=== PATIENT | female | born 1940 | race Caucasian/White ===

== ENCOUNTER → 2016-07-13 | Outpatient (CLI) | payer MEDICARE, OTHER ==
[~2016-07-13] MED LIST: ASPIRIN81 M2 PO; BUMEX PO; CARVEDILOL6.25 MG PO/SL; CELEBREX PO; CENTRUM PO; DESYREL50 MG PO; FISH OIL300 MG PO; KLONOPIN0.5 MG PO; LASIX20 MG; LISINOPRIL-HCTZ1 T18; NITROGLYCERIN0.3 MG SL; POTASSIUM CHLO10 ME1; PREDNISONE PO; PROZAC10 M1 PO; ROBAXIN 750750 M1 PO; SYSTANE 0.3-0.415 ML OU; TOVIAZ4 MG; VITAMIN D2400 UNIT PO; XANAX0.5 M1 PO; ZANTAC150 M1 PO; ZOCOR20 MG PO
--- NOTE | ~2016-07-13 | CT57 ---
[facility] A Service of [facility] RADIOLOGY TEXT RESULTS PATIENT: CORNELIUS RODRIGUEZ [facility] UNIT #: [id number] AGE: [address]: Maria Del Carmen Gutierrez MD SEX: F ORDER DR: [id number] [place] [id number] [facility]. [place], [place] [address] [id number] O MR#: [id number] Acc #: [id number] NAME: CORNELIUS RODRIGUEZ : 1940 SEX: F STUDY DATE/TIME: 07/13/2016 11:45 UNIT: CCA ROOM: STUDY DESCRIPTION: CT Chest Wo Cont Attending Physician: Maria Del Carmen Gutierrez M.D. Referring Physician: Maria Del Carmen Gutierrez M.D. Ordering Physician: Maria Del Carmen Gutierrez M.D. Primary Care Physician: Gentry Sanchez M.D. MEDICAL IMAGING REPORT This report is preliminary unless electronic signature is present EXAM CT of the chest without contrast. DATE OF EXAM 07/13/2016 INDICATIONS 76-year-old female with restrictive lung disease, shortness of breath for [address] of the chest was performed without contrast. Coronal and sagittal reformatted images were obtained. NOTE: This CT exam was performed with one or more of the following radiation dose reduction techniques: automatic exposure control, adjustment of mA and/or kV according to patient size, and iterative reconstruction. COMPARISON No comparisons are available. FINDINGS There is minimal atelectasis or scar in the medial right lower lobe. No airspace consolidation or suspicious pulmonary nodule. No diffuse interstitial process. No lymphadenopathy or pleural effusion. Limited imaging of the upper abdomen demonstrates a small fat-containing hernia anteriorly. Degenerative changes of the thoracic spine. IMPRESSION There is minimal atelectasis or scarring in the medial right lower lobe. The exam is otherwise unremarkable. Dictated by... [facility] A Service of [facility] RADIOLOGY TEXT RESULTS PATIENT: CORNELIUS RODRIGUEZ LOCATION: [facility] : 40 UNIT #: [id number] AGE: [address]: Maria Del Carmen Gutierrez MD SEX: F ORDER DR: Baltazar Palomo M.D. THIS IS AN ELECTRONICALLY VERIFIED REPORT Baltazar Palomo M.D. at 07/14/2016 3:36 PM PAULETTE/keith TD: 07/13/2016 21:37 JOB #: [id number] MEDICAL IMAGING REPORT COPY
== END | disposition home or self-care (01) ==
LOC: CCAT 10:42
DX: J98.4 Other disorders of lung (principal); R91.8 Other nonspecific abnormal finding of lung field
CPT/HCPCS: 71250

== ENCOUNTER → 2016-09-13 | Outpatient (CLI) | payer MEDICARE, OTHER ==
[2016-09-13 14:56] LABS: URINE APPEARANCE CLEAR; URINE BILIRUBIN NEG (NEG); URINE BLOOD NEG (NEG); URINE COLOR YELLOW; URINE GLUCOSE NEG (NORM); URINE KETONE NEG (NEG); URINE LEUKOCYTE ESTERASE 1+ (NEG); URINE NITRATE NEG (NEG); URINE PH 5.5 (5-8); URINE PROTEIN NEG (NEG); URINE UROBILINOGEN 0.2 MG/DL (NORM)
[2016-09-13 14:58] LABS: MICRO INDICATED? YES
[2016-09-13 15:04] LABS: BASOPHIL# 0.1 X10e3 (0-0.3); BASOPHIL% 1.3 % (0-2.5); EOSINOPHIL# 0.3 X10e3 (0-0.7); EOSINOPHIL% 3.2 % (0.0-7.0); HEMATOCRIT 43.2 % (35.0-45.0); HEMOGLOBIN 14.5 gm/dL (12.0-16.0); LYMPHOCYTE# 1.7 X10e3 (1.0-3.5); LYMPHOCYTE% 19.1 % (17.0-45.0); MEAN CELL VOLUME 92.4 FL (83-96); MEAN CORPUSCULAR HEMOGLOBIN 31.1 PG (28-34); MEAN CORPUSCULAR HGB CONC 33.6 g/dL (30-36); MONOCYTE# 0.6 X10e3 (0-1.0); MONOCYTE% 6.8 % (3.0-12.0); NEUTROPHIL% 69.6 % (40-75); PLATELET COUNT 271 X10e3 (140-420); RED BLOOD COUNT 4.68 X10e (3.90-5.30); WHITE BLOOD COUNT 8.7 X10e3 (4.0-10.5)
[2016-09-13 15:05] LABS: DIFF IND NO
[2016-09-13 15:07] LABS: URINE BACTERIA 1+ (NEG); URINE SQUAMOUS EPITHELIAL CELL OCCAS /[HPF]; URINE WBC 25-50 /[HPF] (0-5)
[2016-09-13 15:08] LABS: URINE GRANULAR CAST 0-2 /[HPF]; URINE HYALINE CAST 0-2 /[HPF]; URINE MUCUS PRESENT; URINE TRANSITIONAL EPI CELLS OCCAS /[HPF]
[2016-09-13 15:09] LABS: BUN/CREATININE RATIO 15.55; CALCIUM SERUM 8.7 mg/dL (8.4-10.2); CREATININE SERUM 1.8 mg/dL (0.6-1.4); GLOM FILT RATE Estimated 26.9 mL/min (>60); POTASSIUM 4.1 mmol/L (3.5-5.1)
[2016-09-13 16:13] LABS: CREATININE,RANDOM URINE 190 mg/dL; TOTAL PROTEIN,RANDOM URINE 13 mg/dl (<10)
== END | disposition home or self-care (01) ==
LOC: SLAB 13:57
PROVIDERS: Internal Medicine Nephrology
DX: N18.3 Chronic kidney disease, stage 3 (moderate) (principal); D63.1 Anemia in chronic kidney disease
CPT/HCPCS: 36415; 80048; 81003; 82306; 82310; 82570; 82728; 83540; 83550; 83970; 84100; 84156; 85025

== ENCOUNTER 2016-09-19 12:22 | Emergency (ER) | payer MEDICARE, OTHER ==
--- NOTE | ~2016-09-19 | EKG ---
PATIENT: CORNELIUS RODRIGUEZ UNIT #: [id number] Ventricular Rate: 65 BPM Atrial Rate: 65 BPM P-R Interval: 160 ms QRS Duration: 104 ms Q-T Interval: 412 ms QTC Calculation(Bezet): 428 ms P [place]: 35 degrees Calculated R [place]: 44 degrees Calculated T [place]: 80 degrees Diagnosis Line: Normal sinus rhythm Diagnosis Line: Septal infarct , age undetermined Diagnosis Line: Abnormal ECG Diagnosis Line: No previous ECGs available Diagnosis Line: Confirmed by MAGNOLIA JARQUIN MD ([id number]) on Diagnosis Line: 09/21/2016 1:26:42 PM INTERPRETING MD: MILKA GILBERT
--- NOTE | ~2016-09-19 | CR72 ---
[facility]. [facility] A Service of [facility] & [facility] RADIOLOGY TEXT RESULTS PATIENT: CORNELIUS RODRIGUEZ LOCATION: SED : 40 UNIT #: [id number] AGE: [address]: Linwood Munoz DO SEX: F ORDER DR: [id number] [place] [id number] E MR#: [id number] Acc #: [id number] NAME: CORNELIUS RODRIGUEZ : 1940 SEX: F STUDY DATE/TIME: 09/19/2016 13:03 UNIT: SED ROOM: STUDY DESCRIPTION: CR Chest Single View Portable Attending Physician: Linwood Munoz Ordering Physician: Linwood Munoz Primary Care Physician: Gentry Sanchez M.D. MEDICAL IMAGING REPORT This report is preliminary unless electronic signature is present. EXAM Portable chest INDICATION Shortness of breath today. Comparison with 01/28/2015 FINDINGS There is no definite acute infiltrate. Heart size stable. Visualized osseous structures are unremarkable. IMPRESSION No active disease. Dictated by... Baltazar Palomo M.D. THIS IS AN ELECTRONICALLY VERIFIED REPORT Baltazar Palomo M.D. at 09/20/2016 2:21 PM PAULETTE/sharita TD: 09/20/2016 02:43 JOB #: [id number] MEDICAL IMAGING REPORT Page 1 of 1
[~2016-09-19 12:22] MED LIST changes: -BUMEX PO; -KLONOPIN0.5 MG PO; -PROZAC10 M1 PO; -SYSTANE 0.3-0.415 ML OU; -VITAMIN D2400 UNIT PO
[2016-09-19] MEDS ORDERED: SYSTANE 0.3-0.415 ML OU (14:04)
[2016-09-19] MEDS ORDERED: VITAMIN D2400 UNIT PO (14:04)
[2016-09-19] MEDS ORDERED: KLONOPIN0.5 MG PO (14:04)
[2016-09-19] MEDS ORDERED: BUMEX PO (14:04)
[2016-09-19 15:17] LABS: BASOPHIL# 0.1 X10e3 (0-0.3); BASOPHIL% 1.2 % (0-2.5); EOSINOPHIL# 0.5 X10e3 (0-0.7); EOSINOPHIL% 5.2 % (0.0-7.0); HEMATOCRIT 38.5 % (35.0-45.0); HEMOGLOBIN 12.9 gm/dL (12.0-16.0); LYMPHOCYTE% 22.4 % (17.0-45.0); MEAN CELL VOLUME 93.3 FL (83-96); MEAN CORPUSCULAR HEMOGLOBIN 31.2 PG (28-34); MEAN CORPUSCULAR HGB CONC 33.4 g/dL (30-36); MEAN PLATELET VOLUME 8.8 FL (6.5-11.5); MONOCYTE# 0.7 X10e3 (0-1.0); MONOCYTE% 8.1 % (3.0-12.0); NEUTROPHIL# 5.5 X10e3 (1.5-7.1); NEUTROPHIL% 63.1 % (40-75); PLATELET COUNT 109 X10e3 (140-420); RED BLOOD COUNT 4.12 X10e (3.90-5.30); RED CELL DISTRIBUTION WIDTH 13.1 % (11.0-15.5); WHITE BLOOD COUNT 8.8 X10e3 (4.0-10.5)
[2016-09-19 15:20] LABS: DIFF IND NO
[2016-09-19 15:47] LABS: ALBUMIN SERUM 3.8 g/dL (3.5-5.0); BILIRUBIN, DIRECT 0.3 mg/dL (0.0-0.2); BILIRUBIN,INDIRECT 0.6 mg/dL (0.0-0.9); BILIRUBIN,TOTAL 0.9 mg/dL (0.2-2.0); BUN/CREATININE RATIO 18.12; CALCIUM SERUM 9.1 mg/dL (8.4-10.2); CREATININE SERUM 1.6 mg/dL (0.6-1.4); POTASSIUM 4.6 mmol/L (3.5-5.1); PROTEIN TOTAL SERUM 7.6 g/dL (6.0-8.3)
== END 2016-09-19 17:07 | disposition home or self-care (01) ==
LOC: SED 12:22
PROVIDERS: Emergency Medicine
DX: J98.01 Acute bronchospasm (principal); I11.0 Hypertensive heart disease with heart failure; I50.9 Heart failure, unspecified; F41.9 Anxiety disorder, unspecified; Z90.710 Acquired absence of both cervix and uterus; Z98.890 Other specified postprocedural states
CPT/HCPCS: 36415; 71010; 80048; 80076; 83880; 85025; 93005; 94640; 96372; 99284; J1940; J2930

== ENCOUNTER 2016-10-02 11:05 | Emergency (ER) | payer MEDICARE, OTHER ==
--- NOTE | ~2016-10-02 | EKG ---
PATIENT: CORNELIUS RODRIGUEZ UNIT #: [id number] Ventricular Rate: 86 BPM Atrial Rate: 86 BPM P-R Interval: 168 ms QRS Duration: 102 ms Q-T Interval: 356 ms QTC Calculation(Bezet): 426 ms P Rogers: 69 degrees Calculated R Rogers: 53 degrees Calculated T Rogers: 79 degrees Diagnosis Line: Normal sinus rhythm Diagnosis Line: RSR' or QR pattern in V1 suggests right Diagnosis Line: ventricular conduction delay Diagnosis Line: Borderline ECG Diagnosis Line: When compared with ECG of 19-SEP-2016 13:06, Diagnosis Line: No significant change was found Diagnosis Line: Confirmed by MAGNOLIA JARQUIN MD ([id number]) on Diagnosis Line: 10/05/2016 3:22:43 PM INTERPRETING MD: MILKA GILBERT
--- NOTE | ~2016-10-02 | CR72 ---
[facility]. [facility] A Service of [facility] RADIOLOGY TEXT RESULTS PATIENT: CORNELIUS RODRIGUEZ LOCATION: SED : 40 UNIT #: [id number] AGE: [address]: Keenan Carrasco MD SEX: F ORDER DR: [id number] [place] [id number] E MR#: [id number] Acc #: [id number] NAME: CORNELIUS RODRIGUEZ : 1940 SEX: F STUDY DATE/TIME: 10/02/2016 11:27 UNIT: SED ROOM: STUDY DESCRIPTION: CR Chest Single View Portable Attending Physician: Keenan Carrasco M.D. Ordering Physician: Keenan Carrasco M.D. Primary Care Physician: Gentry Sanchez M.D. MEDICAL IMAGING REPORT This report is preliminary unless electronic signature is present. EXAM Portable chest HISTORY Shortness of breath since 4 a.m. today. COMPARISON 09/19/2016 FINDINGS Low volume inspiration. No definite acute infiltrate. Heart size stable. The visualized osseous structures are unremarkable. IMPRESSION No active disease. Dictated by... Baltazar Palomo M.D. THIS IS AN ELECTRONICALLY VERIFIED REPORT Baltazar Palomo M.D. at 10/04/2016 12:37 PM Ronald TD: 10/02/2016 13:39 JOB #: [id number] MEDICAL IMAGING REPORT Page 1 of 1
[~2016-10-02 11:05] MED LIST changes: +BUMEX PO; +KLONOPIN0.5 MG PO; +SYSTANE 0.3-0.415 ML OU; +VITAMIN D2400 UNIT PO
[2016-10-02 11:51] LABS: BASOPHIL# 0.1 X10e3 (0-0.3); BASOPHIL% 1.1 % (0-2.5); EOSINOPHIL# 0.7 X10e3 (0-0.7); EOSINOPHIL% 5.1 % (0.0-7.0); HEMATOCRIT 41.1 % (35.0-45.0); HEMOGLOBIN 13.8 gm/dL (12.0-16.0); LYMPHOCYTE# 1.8 X10e3 (1.0-3.5); LYMPHOCYTE% 13.1 % (17.0-45.0); MEAN CELL VOLUME 93.2 FL (83-96); MEAN CORPUSCULAR HEMOGLOBIN 31.3 PG (28-34); MEAN CORPUSCULAR HGB CONC 33.6 g/dL (30-36); MEAN PLATELET VOLUME 7.5 FL (6.5-11.5); MONOCYTE# 1.1 X10e3 (0-1.0); MONOCYTE% 8.4 % (3.0-12.0); NEUTROPHIL# 9.8 X10e3 (1.5-7.1); NEUTROPHIL% 72.3 % (40-75); PLATELET COUNT 267 X10e3 (140-420); RED BLOOD COUNT 4.41 X10e (3.90-5.30); RED CELL DISTRIBUTION WIDTH 13.2 % (11.0-15.5); WHITE BLOOD COUNT 13.6 X10e3 (4.0-10.5)
[2016-10-02 11:53] LABS: DIFF IND NO
[2016-10-02 12:02] LABS: POC - CKMB <1.0 ng/mL (0.0-7.9); POC - TROPONIN <0.05 ng/mL (<=0.05)
[2016-10-02 12:07] LABS: ALBUMIN SERUM 3.7 g/dL (3.5-5.0); BILIRUBIN, DIRECT 0.1 mg/dL (0.0-0.2); BILIRUBIN,INDIRECT 0.3 mg/dL (0.0-0.9); BILIRUBIN,TOTAL 0.4 mg/dL (0.2-2.0); CALCIUM SERUM 9.1 mg/dL (8.4-10.2); GLOM FILT RATE Estimated 23.7 mL/min (>60); POTASSIUM 4.4 mmol/L (3.5-5.1); PROTEIN TOTAL SERUM 7.3 g/dL (6.0-8.3)
[2016-10-02 13:11] LABS: POC - CKMB <1.0 ng/mL (0.0-7.9); POC - TROPONIN <0.05 ng/mL (<=0.05)
== END 2016-10-02 13:47 | disposition home or self-care (01) ==
LOC: SED 11:05
PROVIDERS: Emergency Medicine
DX: J44.9 Chronic obstructive pulmonary disease, unspecified (principal); N28.9 Disorder of kidney and ureter, unspecified; I50.9 Heart failure, unspecified; Z90.710 Acquired absence of both cervix and uterus; Z98.890 Other specified postprocedural states
CPT/HCPCS: 36415; 71010; 80048; 80076; 82553; 83880; 84484; 85025; 93005; 94640; 99284

== ENCOUNTER 2016-11-24 20:42 | Inpatient (IN) | payer MEDICARE, OTHER ==
[~2016-11-24] VITALS: Ht 147.3 cm; Wt 126.6 kg
--- NOTE | ~2016-11-24 | HP ---
Unit #: [id number] #: [id number] Patient: CORNELIUS RODRIGUEZ [id number] [place] [id number] [facility] [place] [facility]. [place], [place] [address] [id number] I MR#: [id number] NAME: CORNELIUS RODRIGUEZ ROOM: 313 Age: 76 Sex: F Admission Date: 11/25/2016 : 1940 Attending Physician: Deanna Muniz M.D. Primary Care Physician: Gentry Sanchez M.D. HISTORY AND PHYSICAL ADMISSION DIAGNOSES 1. Acute exacerbation of chronic obstructive pulmonary disease. 2. Acute kidney injury. 3. Morbid obesity. 4. Hypertension. 5. Dyslipidemia. 6. Depression and anxiety. HISTORY OF PRESENT ILLNESS Cornelius Rodriguez is a 76-year-old female patient of Dr. Sanchez who went to an [facility] ER yesterday secondary to shortness of air, dyspnea, which started last Tuesday, along with the nonproductive cough. The patient denies any fever or chills. Denies any chest pain. Denies any headache, dizziness, nausea, vomiting, diarrhea, or abdominal pain. Tells me that she has never been diagnosed with COPD. She is a nonsmoker; however, her used to be a heavy smoker and he used to smoke around her. REVIEW OF SYSTEMS Twelve point review of systems on this patient is basically negative, except as above. PAST MEDICAL HISTORY History of hypertension, dyslipidemia, depression and anxiety. HOME MEDICATIONS Celebrex, aspirin, Zocor, zantac, Desyrel, multivitamins, fish oil, carvedilol, Klonopin, vitamin D2, Systane eye drops, Bumex, and Prozac. ALLERGIES No known drug allergies. SOCIAL HISTORY No history of tobacco, alcohol or illicit drugs. FAMILY HISTORY Unremarkable. PHYSICAL EXAMINATION GENERAL APPEARANCE: Patient is an obese 76-year-old, female in no acute distress. VITAL SIGNS: BP 166/80, heart rate 72, respirations 16, temperature 97.7. HEENT: Head is atraumatic. Pupils equal, round, and reactive to light. Extraocular muscles intact. Oropharynx clear. Unit #: [id number] #: [id number] Patient: CORNELIUS RODRIGUEZ NECK: Supple. No mass. No JVD. No bruits. CHEST: Diminished bilaterally with very mild expiratory wheezing. CARDIOVASCULAR: S1 and S2. No murmurs. ABDOMEN: Soft, obese, nontender, and nondistended. LOWER EXTREMITIES: With the bilateral edema. NEUROLOGIC: Patient grossly intact. No focal deficits. DIAGNOSTIC STUDIES IMAGING STUDIES: Chest x-ray negative. LABORATORY STUDIES: Chemistry is significant for BUN and creatinine of 28 and 1.7. Coagulation panel unremarkable. Cardiac enzymes negative. White count 9.5, H and H 13.2 and 38.3. ASSESSMENT AND PLAN 1. Acute exacerbation of COPD, continue DuoNeb, continue (1) , pulmonary eval. 2. Acute kidney injury, will hold Bumex, gentle hydration. 3. Consult nephrology. 4. Morbid obesity. 5. Hypertension. 6. Will start on amlodipine. 7. Dyslipidemia, continue home meds. 8. Depression and anxiety, continue home meds. 9. GI and DVT prophylaxis, continue Protonix and Lovenox. 10. Lower extremity edema. Will check the Doppler and rule out DVT. Dictated by Laure Ying/tra TD: 11/26/2016 10:33 JOB #: [id number] HISTORY AND PHYSICAL Page 1 of 1 X Cooper Valentin MD HISTORY AND PHYSICAL
--- NOTE | ~2016-11-24 | EKG ---
PATIENT: CORNELIUS RODRIGUEZ UNIT #: [id number] Ventricular Rate: 72 BPM Atrial Rate: 72 BPM P-R Interval: 170 ms QRS Duration: 102 ms Q-T Interval: 392 ms QTC Calculation(Bezet): 429 ms P [place]: 76 degrees Calculated R [place]: 49 degrees Calculated T [place]: 78 degrees Diagnosis Line: Normal sinus rhythm Diagnosis Line: Normal ECG Diagnosis Line: When compared with ECG of 02-OCT-2016 11:10, Diagnosis Line: No significant change was found Diagnosis Line: Confirmed by MAGNOLIA JARQUIN MD ([id number]) on Diagnosis Line: 11/25/2016 12:56:57 PM INTERPRETING MD: MILKA GILBERT
--- NOTE | ~2016-11-24 | CR72 ---
[facility]. [facility] A Service of [facility] & [facility] RADIOLOGY TEXT RESULTS PATIENT: CORNELIUS RODRIGUEZ LOCATION: C3A 313-01 : 40 UNIT #: [id number] AGE: [address]: Deanna Muniz MD SEX: F ORDER DR: [id number] [place] [id number] I MR#: [id number] Acc #: [id number] NAME: CORNELIUS RODRIGUEZ : 1940 SEX: F STUDY DATE/TIME: 11/24/2016 20:59 UNIT: SEDOF ROOM: [facility] STUDY DESCRIPTION: CR Chest Single View Portable Attending Physician: Deanna Muniz M.D. Ordering Physician: Jono Robertson M.D. Primary Care Physician: Gentry Sanchez M.D. MEDICAL IMAGING REPORT This report is preliminary unless electronic signature is present. EXAM Portable chest 11/24/2016 HISTORY 76-year-old female with shortness of air and cough for 2 days. COMPARISON Chest 10/02/2016. FINDINGS Frontal chest demonstrates clear lungs. No pleural effusion or pneumothorax. Heart size and mediastinum are normal. Pulmonary vasculature normal. IMPRESSION No acute cardiopulmonary findings. Dictated by... Jayy Lomeli M.D. THIS IS AN ELECTRONICALLY VERIFIED REPORT Jayy Lomeli M.D. at 11/25/2016 4:03 PM CITLALI/hollis TD: 11/25/2016 06:37 JOB #: [id number] MEDICAL IMAGING REPORT Page 1 of 1
--- NOTE | ~2016-11-24 | CO ---
Unit #: [id number] #: [id number] Patient: CORNELIUS RODRIGUEZ [id number] [address] [address] [id number] I MR#: [id number] NAME: CORNELIUS RODRIGUEZ ROOM: 313 Age: 76 Sex: F Admission Date: 11/25/2016 : 1940 Attending Physician: Deanna Muniz M.D. Primary Care Physician: Gentry Sanchez M.D. Consultation Date: 11/27/2016 CONSULTATION REPORT TYPE OF CONSULTATION Nephrology REASON FOR CONSULTATION Elevated creatinine level. 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 Now, came in with shortness of breath and nonproductive cough. We have been asked to see for elevated creatinine level. The patient has been on Celebrex for several years on a regular daily basis. Does not admit to vomiting, diarrhea, or nausea. The creatinine level is noted to be 1.6. No hematuria. No dysuria. REVIEW OF SYSTEMS CVS: As above. RESPIRATORY: As above. GI: No diarrhea. No vomiting. : No hematuria. PAST MEDICAL HISTORY Significant for hypertension, hyperlipidemia, depression, and chronic kidney disease stage 3. MEDICATIONS Home medications include Celebrex, aspirin, Zocor, Zantac, and carvedilol. ALLERGIES No known drug allergies. SOCIAL HISTORY Does not drink or smoke. FAMILY HISTORY Unremarkable for end-stage renal disease. PHYSICAL EXAMINATION GENERAL: The patient is awake, alert, and oriented. VITAL SIGNS: Temperature is 97.9, heart rate is 83 per minute, blood pressure is 150/70, and saturations 94%. HEENT: Head is atraumatic. Extraocular movements are intact. Sclerae are anicteric. Unit #: [id number] #: [id number] Patient: CORNELIUS RODRIGUEZ NECK: Supple. There is no elevation of JVD. CHEST: Clear. Air entry is equal bilaterally. Breathing is vesicular in nature. HEART: S1 and S2 audible. There is no S3. No S4. ABDOMEN: Soft. There is no organomegaly. No guarding. No rigidity. No rebound tenderness. EXTREMITIES: There is trace to 1+ edema. ONCOLOGY REP SPECIALIST: Motor system is intact. Cerebellar system is intact. LABORATORY DATA Sodium is 139, potassium is 4.4, chloride is 107, CO2 is 22, BUN is 34, creatinine is 1.6, glucose 124, and calcium is 8.4. WBC is 18.6, hemoglobin is 12.6, hematocrit is 38.5, and platelets 234. Urinalysis and urinary protein have been ordered, but are not available. BNP is 48. IMPRESSION 1. 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 Renal function is close to baseline. The volume is satisfactory. We will discontinue the IV fluids. 2. Hypertension. The patient has been started on lisinopril and hydrochlorothiazide. We will continue with that. 3. History of chronic obstructive pulmonary disease. Assess left ventricular function. Request ejection fraction and cardiology records from . Dictated by... Malcom Perrin M.D. RA/vignesh TD: 11/28/2016 04:18 JOB #: [id number] CONSULTATION REPORT Page 1 of 1 X Malcom Perrin MD X CONSULTATION REPORT
--- NOTE | ~2016-11-24 | DS ---
Unit #: [id number] #: [id number] Patient: CORNELIUS RODRIGUEZ [id number] [address] [address] [id number] I MR#: [id number] NAME: CORNELIUS RODRIGUEZ ROOM: 313 Age: 76 Sex: F Admission Date: 11/25/2016 : 1940 Discharge Date: 12/01/2016 Attending Physician: Deanna Muniz M.D. Primary Care Physician: Gentry Sanchez M.D. DISCHARGE SUMMARY FINAL DIAGNOSES 1. Acute hypoxic respiratory failure, which is resolved. Patient's pulse ox on room air is 99%. 2. Acute bronchitis. 3. Acute on chronic kidney disease. 4. Hypertension. 5. Possible obstructive sleep apnea. 6. Morbid obesity. 7. Chronic obstructive pulmonary disease. 8. Hypokalemia, which is resolved. 9. Hypertension. 10. Hyperlipidemia. 11. Depression/anxiety. 12. Deconditioning. ADMITTING PHYSICIAN Dr. Valentin. DISCHARGING PHYSICIAN Dr. Deanna Remy [facility] Dr. Perrin and Dr. Gutierrez from pulmonary services; Dr. Malcom Perrin from renal services. LAB WORKUP ON DISCHARGE Please note, these labs were done on 11/30/2016, BNP shows sodium 138, potassium 3.5, chloride 103, BUN 44, creatinine 1.7, calcium 8.6. CBC show WBC 12.4, hemoglobin 12.8, hematocrit 37.8 and platelet count of 236. Strep pneumoniae antigen in the urine was negative. Urinalysis on 11/28/2016 showed 1+ leukocyte esterase, otherwise negative. BNP on admission was 48. Troponin on admission was less than 0.05. Significant radiological studies done during hospitalization was ultrasound of kidneys bilateral, which shows generalized renal and cortical atrophy, most likely reflecting chronic renal disease, no acute abnormalities. Progressive decrease in size of the right kidney. Venous Doppler study of the lower extremity was done, which shows no SVT or DVT in the lower extremities. Chest x-ray on 11/24/2016 showed no acute cardiopulmonary changes. Patient did have CT scan of the chest done before coming here on 07/13/2016, which showed minimal atelectasis or scarring in the medial right lower Unit #: [id number] #: [id number] Patient: CORNELIUS RODRIGUEZ. The exam is unremarkable. DISCHARGE MEDICATIONS 1. Mini-Neb treatment with albuterol and a ProTime twice a day and q.4 p.r.n. 2. Prednisone 40 mg q. day for three days and decrease 10 mg every three days until off. 3. Tylenol 650 q.4 p.r.n. 4. Prozac 10 mg daily. 5. Desyrel 100 mg q.h.s 6. Fish oil capsule daily. 7. Klonopin 0.5 mg 3 times a day. 8. Coreg 6.25 mg twice a day. 9. Amlodipine 10 mg daily. 10. Chlorthalidone 25 mg daily. 11. Please note, Bumex had been discontinued at this time. 12. Systane eye drops 2 drops OU daily. 13. Lipitor 10 mg q.h.s.; 14. Zestril 20 mg twice a day. 15. Pepcid 20 mg daily. 16. Multivitamin daily. 17. Aspirin 81 mg daily. 18. Augmentin 875 mg p.o. twice a day until 12/03/2016. 19. Vitamin D 50,000 units q. weekly. HOSPITAL COURSE Ms. Cornelius Rodriguez is a 76-year-old female who was admitted by my colleague, Dr. Valentin with shortness of breath and acute exacerbation of COPD. The patient had gone to [facility] prior to coming to [facility]. She was admitted with nonproductive cough and chest congestion. Patient's admission diagnosis was acute bronchitis, acute exacerbation of COPD, acute respiratory failure, acute kidney injury. Dr. Perrin from renal services were consulted. Patient does have chronic kidney disease, stage 3. Bumex was held. Patient's renal functions are stable as per nephrology. That needs to be continued to observe. Need to discontinue any NSAIDs at this time. Dr. Perrin from pulmonary services treated the patient with bronchodilator, IV Solu-Medrol and antibiotics. The patient is doing much better at this time. Room air pulse ox is 99%. Patient will need PFT as outpatient assess for COPD. Patient could have obstructive sleep apnea. May need to have the test done as an outpatient. Patient is stable and is being discharged to rehab facility as she lives by herself and she is kind of deconditioned at this time. Please note, patient had echocardiogram done during hospitalization, which showed atrial fibrillation of 50% to 55%, mild mitral regurgitation, mild tricuspid regurgitation, small pericardial effusion versus fat tissue, right ventricle systolic pressure of 35 mmHg. PHYSICAL EXAMINATION ON DISCHARGE VITAL SIGNS: Blood pressure is 154/65, respiratory rate 16, pulse is 64, temperature is 97.6, oxygen saturation is 99% on room air. HEENT: Normocephalic. CHEST: Fair air entry, decreased at the bases. CVS: S1 and S2 positive. Regular rhythm. Unit #: [id number] #: [id number] Patient: RODRIGUEZ,CORNELIUS ABDOMEN: Obese. EXTREMITIES: 1+ edema is present. MAJOR CASE DETECTIVE: Patient is awake, alert, and oriented x3. DISCHARGE INSTRUCTIONS 1. The patient is being discharged to rehab facility under Dr. Muniz. 2. Medication as per med rec. 3. CBC and BMP to be done in 2 to 3 days. Patient will need to followup with Malcom Perrin, insurance policy clerk, once she gets discharged from rehab facility. Plan of care has been discussed with patient. Dictated by... Laure Back/tra TD: 12/01/2016 09:02 JOB #: [id number] DISCHARGE SUMMARY Page 1 of 1 X Deanna Muniz MD X DISCHARGE SUMMARY
--- NOTE | ~2016-11-24 | US77 ---
[facility] A Service of [facility] RADIOLOGY TEXT RESULTS PATIENT: CORNELIUS RODRIGUEZ LOCATION: C3A 313-01 : 40 UNIT #: [id number] AGE: [address]: Deanna Muniz MD SEX: F ORDER DR: [id number] [facility] [address] [place], [place] [address] [id number] I MR#: [id number] #: [id number] NAME: CORNELIUS RODRIGUEZ : 1940 SEX: F STUDY DATE/TIME: 11/27/2016 11:37 UNIT: C3A PCU ROOM: [facility] STUDY DESCRIPTION: US Kidney Bilateral Complete Attending Physician: Deanna Muniz M.D. Ordering Physician: Ed Doctor [id number] [facility] Primary Care Physician: Gentry Sanchez M.D. MEDICAL IMAGING REPORT This report is preliminary unless electronic signature is present EXAM Renal sonogram HISTORY Acute renal failure. Decreased renal function creatinine 1.6. Estimated GFR 31. COMPARISON Renal sonogram 04/08/2015 FINDINGS Real-time examination demonstrates bilateral renal cortical atrophy with a small right and left kidney with the right kidney measuring 8 cm and the left kidney measuring 7.6 cm. Central echo complex appears normal. Bladder unremarkable. Perinephric soft tissues appear normal. IMPRESSION Generalized renal and cortical atrophy most likely reflecting chronic renal disease. No acute abnormalities. Progressive decrease in size of the right kidney when compared to patient's ultrasound of 2014. Dictated by... Randy Palomo M.D. THIS IS AN ELECTRONICALLY VERIFIED REPORT Randy Palomo M.D. at 11/28/2016 1:00 PM PEGGY/ryan TD: 11/27/2016 21:40 JOB #: [id number] MEDICAL IMAGING REPORT Page 1 of 1 COPY
--- NOTE | ~2016-11-24 | US84 ---
[id number] [facility] [address] [place], [place] [address] [id number] I MR#: [id number] Acc #: [id number] NAME: CORNELIUS RODRIGUEZ : 1940 SEX: F STUDY DATE/TIME: 11/25/2016 21:37 UNIT: C3A PCU ROOM: 313 STUDY DESCRIPTION: US LE Veins Complete Ramón Stdy Attending Physician: Deanna Muniz M.D. Ordering Physician: Cooper Valentin M.D. Primary Care Physician: Gentry Sanchez M.D. MEDICAL IMAGING REPORT This report is preliminary unless electronic signature is present EXAM Bilateral lower extremity venous ultrasound HISTORY Bilateral lower extremity swelling for 1 day. FINDINGS Ultrasound examination of the lower extremity veins was performed from the groin to the calf bilaterally with ivan-scale, color Doppler and spectral Doppler evaluation There is no DVT or SVT identified. The left peroneal vein is not visualized due to left lower leg edema. IMPRESSION No DVT or SVT in the lower extremities. Dictated by... Miles Mcgraw M.D. THIS IS AN ELECTRONICALLY VERIFIED REPORT Miles Mcgraw M.D. at 11/26/2016 11:45 PM JOSÉ/hollis TD: 11/26/2016 06:12 JOB #: [id number] MEDICAL IMAGING REPORT Page 1 of 1 COPY
--- NOTE | ~2016-11-24 | CO ---
Unit #: [id number] #: [id number] Patient: CORNELIUS RODRIGUEZ [id number] [facility]. [place], [place] [address] [id number] MR#: [id number] NAME: CORNELIUS RODRIGUEZ ROOM: 313 Age: 76 Sex: F Admission Date: 11/25/2016 : 1940 Attending Physician: Deanna Muniz M.D. Primary Care Physician: Gentry Sanchez M.D. Consultation Date: 11/27/2016 CONSULTATION REPORT JOB NOTE: VERIFY REFERRING PHYSICIAN AT THE START OF DICTATION. TYPE OF CONSULTATION Nephrology REASON FOR CONSULTATION Elevated creatinine. Thank you very much for this consultation. HISTORY OF PRESENT ILLNESS The patient is a 76-year-old, white female with a history of CKD stage 3 with baseline creatinine around 1.3 to 1.7. She states she has seen Nephrology in the past, but she cannot remember who she saw. She was admitted with shortness of breath and COPD exacerbation. Her creatinine was initially elevated at 1.7 and arose to 1.8 yesterday, and it is better at 1.6 today. She is on lisinopril/hydrochlorothiazide as an outpatient. She also states she uses Celebrex daily as an outpatient. She has a history of hypertension, long standing, but denies any history of diabetes. She does have obesity and hyperlipidemia. She denies any hematuria or dysuria. No history of kidney stones. No other complaints. PAST MEDICAL HISTORY Significant for hypertension, COPD, obesity, hyperlipidemia, depression, and anxiety. MEDICATIONS Her home medications are aspirin, Celebrex, Zocor, Zantac, Desyrel, multivitamin, fish oil, carvedilol, Klonopin, vitamin D, Systane eye drops, Bumex, Prozac, and lisinopril/hydrochlorothiazide. ALLERGIES No known drug allergies. FAMILY HISTORY Noncontributory. REVIEW OF SYSTEMS A 12 system review of systems is negative except as per HPI. PHYSICAL EXAMINATION VITAL SIGNS: Her blood pressure is 130s to 170s over 60s to 70s, heart rate 60s to 90s, respirations 16 to 18, and T-max 97.9. GENERAL: She is alert and oriented, in no acute distress. Unit #: [id number] #: [id number] Patient: CORNELIUS RODRIGUEZ HEENT: Head is normocephalic and atraumatic. ENT, pupils are equal, round, and reactive to light. Oropharynx is clear. NECK: Supple. No JVD. LUNGS: Clear to auscultation bilaterally with no wheezes, rhonchi, or crackles. HEART: Regular rate and rhythm. No murmurs, gallops, or rubs. ABDOMEN: Soft and nontender. Positive bowel sounds. EXTREMITIES: She has trace edema. MEDICATIONS Medications were reviewed. DIAGNOSTIC STUDIES LABORATORY RESULTS: Sodium 139, potassium 4.4, chloride 107, bicarb 22, BUN 34, creatinine 1.6, glucose 124, and calcium 8.4. White count 18.6, hemoglobin 12.6, and platelets 234. IMAGING STUDIES: Chest x-ray showed no acute cardiopulmonary process and lower extremity DVT. Doppler was negative. ASSESSMENT 1. Chronic kidney disease, stage 3. Function appears close to baseline and fairly stable. We will check urinalysis. She had renal ultrasound done a couple of years ago, which showed some cortical thinning, was otherwise unremarkable. Lytes have been stable. Discussed the need for nonsteroidal anti-inflammatory drug avoidance with the patient. 2. Hypertension. Blood pressure does remain above goal. It is okay to resume her home lisinopril/hydrochlorothiazide at the current time. 3. Chronic obstructive pulmonary disease exacerbation. 4. Hyperlipidemia. 5. Obesity. PLAN As detailed above. We will resume lisinopril/hydrochlorothiazide. We will stop IV fluids. We will check urinalysis with microscopy and repeat labs in the morning. I did discuss NSAID avoidance with the patient and recommend that she use Tylenol instead of Celebrex as needed over the counter when she is discharged. She will need to follow up for close monitoring of her kidney function after discharge. Thank you very much for this consultation. Dictated by... Barrera Acevedo M.D. PAOLA/vignesh TD: 11/28/2016 02:54 JOB #: [id number] Unit #: [id number] #: [id number] Patient: CORNELIUS RODRIGUEZ CONSULTATION REPORT Page 1 of 1 X Barrera Acevedo MD CONSULTATION REPORT
--- NOTE | ~2016-11-24 | CO ---
Unit #: [id number] #: [id number] Patient: CORNELIUS RODRIGUEZ [id number] [address] [address] [id number] I MR#: [id number] NAME: CORNELIUS RODRIGUEZ ROOM: 313 Age: 76 Sex: F Admission Date: 11/25/2016 : 1940 Attending Physician: Deanna Muniz M.D. Primary Care Physician: Gentry Sanchez M.D. Consultation Date: 11/25/2016 CONSULTATION REPORT REASON FOR CONSULT Shortness of breath. HISTORY OF PRESENT ILLNESS This is a very pleasant 76-year-old female with past medical history significant for hypertension, hyperlipidemia, depression and anxiety who presented to the emergency room with progressive shortness of breath for the last 24 hours. The patient stated that this is the third time she has had the symptom. She stated that 2 months ago she went to the Urgent Care with similar symptom of shortness of breath and questionable wheezing, and she was given, at that time, antibiotic and steroid. The patient had complete recovery; however, 2 weeks after, she had recurrence of her symptoms, and she again went back to the Urgent Care where she was given the same treatment and she felt better after that. Two days ago the patient started feeling short of breath, and she felt that she was wheezing. She denied any fever, chills or night sweats. No cough. Upon presentation to the emergency room, she was given bronchodilator, and she feels much better now. The patient denied any history of asthma or COPD. She never used inhalers or had trouble breathing. PAST MEDICAL HISTORY 1. Hypertension. 2. Hyperlipidemia. 3. Depression. 4. Anxiety. HOME MEDICATIONS 1. Celebrex. 2. Aspirin. 3. Zocor. 4. Zantac. 5. Multivitamin. 6. Fish oil. 7. Coreg. 8. Klonopin. 9. Vitamin D. ALLERGIES No known drug allergies. SOCIAL HISTORY Unit #: [id number] #: [id number] Patient: CORNELIUS RODRIGUEZ The patient never smoked. No history of alcohol or drug abuse. The patient is a for the last 5 years. FAMILY HISTORY Unremarkable. PHYSICAL EXAMINATION GENERAL: Patient is in no acute distress. VITAL SIGNS: Blood pressure 156/71, respiratory rate 18, O2 saturation 98%. HEENT: Atraumatic, normocephalic. PERRLA, EOMI. NECK: Supple. No JVD. No lymphadenopathy. CHEST: Clear to auscultation bilaterally. HEART: S1, S2. No murmur, gallops or rubs. ABDOMEN: Soft, nontender. Bowel sounds positive. No hepatosplenomegaly. EXTREMITIES: No edema or cyanosis. SKIN: No rashes. 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 No focal motor/sensory deficits. LABS AND OTHER TESTS LABORATORY: Creatinine 1.7, sodium 136, chloride 120. White blood count 9.5, hemoglobin 13.2. IMAGING TESTS: Chest x-ray is not consistent with any acute findings. ASSESSMENT 1. Acute bronchitis. 2. Dyspnea. 3. Morbid obesity. 4. Hypertension. 5. Depression. 6. Anxiety. 7. Hyperlipidemia. PLAN 1. Likely the patient's symptoms are related to acute bronchitis, and I doubt she has underlying COPD or asthma even though she had extended exposure to secondhand smoke from her . 2. Will continue the patient on bronchodilator and will add mucolytics. 3. Will hold on further diuresing the patient at this point due to her creatinine. 4. The patient was counselled regarding weight loss, and she was advised that she will need sleep study as an outpatient. 5. The patient currently is on IV steroid, which we will continue, but likely will be able to discontinue in 1-2 days. NOTE: I would like to thank Dr. Valentin for allowing me to be part of this patient's care. Dictated by... Laure Nur TD: 11/26/2016 14:39 JOB #: [id number] Unit #: [id number] #: [id number] Patient: CORNELIUS RODRIGUEZ CONSULTATION REPORT Page 1 of 1 X DALY ANGULO MD CONSULTATION REPORT
--- NOTE | ~2016-11-24 | BMI ---
[facility] Nutrition Therapy DATE: 11/25/16 Patient: CORNELIUS RODRIGUEZ Physician: SALINA Address: [address] [place] [address] Room/Bed: [address] [place] [address], Zip: [place] [address] Admit Date: 11/25/16 Date of : 40 Height: 4 10 Weight: 271 123.2 HIGH BMI NOTE: DX: 76 y/o female admitted with COPD exacerbation ANTHROPOMETRICS: Ht: 58", Wt: 123 kg, BMI: 56 (stage III obese) DIET: Regular INTERVENTION: Restricted diet, meds/fluids per MD RECOMMENDATIONS: No H&P currently available. Consider changing diet to healthy heart to promote a gradual weight loss towards a healthy BMI range. If pt has hx of diabetes add consistent carb restriction. Respectfully, Jeane Sesay RD, LD [facility] cc: client file
[2016-11-24 21:20] LABS: BASOPHIL# 0.1 X10e3 (0-0.3); BASOPHIL% 1.5 % (0-2.5); EOSINOPHIL# 0.8 X10e3 (0-0.7); HEMATOCRIT 38.3 % (35.0-45.0); HEMOGLOBIN 13.2 gm/dL (12.0-16.0); LYMPHOCYTE# 2.9 X10e3 (1.0-3.5); LYMPHOCYTE% 30.2 % (17.0-45.0); MEAN CELL VOLUME 93.6 FL (83-96); MEAN CORPUSCULAR HEMOGLOBIN 32.3 PG (28-34); MEAN CORPUSCULAR HGB CONC 34.5 g/dL (30-36); MEAN PLATELET VOLUME 8.1 FL (6.5-11.5); MONOCYTE# 0.9 X10e3 (0-1.0); MONOCYTE% 9.4 % (3.0-12.0); NEUTROPHIL# 4.8 X10e3 (1.5-7.1); NEUTROPHIL% 50.9 % (40-75); PLATELET COUNT 193 X10e3 (140-420); RED BLOOD COUNT 4.09 X10e (3.90-5.30); RED CELL DISTRIBUTION WIDTH 13.3 % (11.0-15.5); WHITE BLOOD COUNT 9.5 X10e3 (4.0-10.5)
[2016-11-24 21:25] LABS: DIFF IND NO
[2016-11-24 21:36] LABS: ALBUMIN SERUM 3.7 g/dL (3.5-5.0); BILIRUBIN,TOTAL 0.6 mg/dL (0.2-2.0); BUN/CREATININE RATIO 16.47; CREATININE SERUM 1.7 mg/dL (0.6-1.4); GLOM FILT RATE Estimated 28.8 mL/min (>60)
[2016-11-24 21:48] LABS: POC - CKMB <1.0 ng/mL (0.0-7.9); POC - TROPONIN <0.05 ng/mL (<=0.05)
[2016-11-24 22:09] LABS: PROTHROMBIN TIME (PATIENT) 11.7 SECONDS (9.5-12.4)
[2016-11-24 22:16] LABS: PARTIAL THROMBOPLASTIN TIME 26.6 SECONDS (25.6-38.1)
[2016-11-25] MEDS ORDERED: PROZAC10 M1 PO (05:34)
[2016-11-26 06:03] LABS: HEMATOCRIT 37.4 % (35.0-45.0); HEMOGLOBIN 12.6 gm/dL (12.0-16.0); MEAN CELL VOLUME 94.3 FL (83-96); MEAN CORPUSCULAR HEMOGLOBIN 31.7 PG (28-34); MEAN CORPUSCULAR HGB CONC 33.6 g/dL (30-36); MEAN PLATELET VOLUME 8.1 FL (6.5-11.5); RED BLOOD COUNT 3.96 X10e (3.90-5.30); RED CELL DISTRIBUTION WIDTH 13.3 % (11.0-15.5)
[2016-11-26 06:05] LABS: WHITE BLOOD COUNT 16.8 X10e3 (4.0-10.5)
[2016-11-26 07:30] LABS: BUN/CREATININE RATIO 16.66; CALCIUM SERUM 8.6 mg/dL (8.4-10.2); CREATININE SERUM 1.8 mg/dL (0.6-1.4); GLOM FILT RATE Estimated 26.9 mL/min (>60); POTASSIUM 4.2 mmol/L (3.5-5.1)
[2016-11-27 08:31] LABS: HEMATOCRIT 38.5 % (35.0-45.0); HEMOGLOBIN 12.6 gm/dL (12.0-16.0); MEAN CELL VOLUME 95.2 FL (83-96); MEAN CORPUSCULAR HEMOGLOBIN 31.2 PG (28-34); MEAN CORPUSCULAR HGB CONC 32.8 g/dL (30-36); MEAN PLATELET VOLUME 9.2 FL (6.5-11.5); RED BLOOD COUNT 4.05 X10e (3.90-5.30); RED CELL DISTRIBUTION WIDTH 13.4 % (11.0-15.5); WHITE BLOOD COUNT 18.6 X10e3 (4.0-10.5)
[2016-11-27 08:59] LABS: BUN/CREATININE RATIO 21.25; CALCIUM SERUM 8.4 mg/dL (8.4-10.2); CREATININE SERUM 1.6 mg/dL (0.6-1.4); POTASSIUM 4.4 mmol/L (3.5-5.1)
[2016-11-28 07:28] LABS: URINE APPEARANCE CLEAR; URINE BILIRUBIN NEG (NEG); URINE BLOOD NEG (NEG); URINE COLOR YELLOW; URINE GLUCOSE NEG (NEG); URINE KETONE NEG (NEG); URINE LEUKOCYTE ESTERASE 2+ (NEG); URINE NITRATE NEG (NEG); URINE PROTEIN NEG (NEG); URINE SPECIFIC GRAVITY 1.024 (1.003-1.035); URINE UROBILINOGEN 0.2 MG/DL (NEG)
[2016-11-28 07:30] LABS: URINE BACTERIA AUWI NEG (NEGATIVE); URINE SQUAMOUS EPITHELIAL CELL FEW /[HPF]; UWBCS1 AUWI 25-50 (0-5)
[2016-11-28 07:57] LABS: CREATININE,RANDOM URINE 146 mg/dL; SODIUM URINE RANDOM 18 mmol/L; TOTAL PROTEIN,RANDOM URINE 14 mg/dl (<10)
[2016-11-28 07:58] LABS: URINE CRYSTALS URIC ACID /[HPF]
[2016-11-28 09:12] LABS: BASOPHIL% 0.3 % (0-2.5); DIFF IND NO; HEMATOCRIT 38.8 % (35.0-45.0); HEMOGLOBIN 12.8 gm/dL (12.0-16.0); LYMPHOCYTE# 1.1 X10e3 (1.0-3.5); LYMPHOCYTE% 7.6 % (17.0-45.0); MEAN CELL VOLUME 94.4 FL (83-96); MEAN CORPUSCULAR HEMOGLOBIN 31.1 PG (28-34); MEAN CORPUSCULAR HGB CONC 32.9 g/dL (30-36); MEAN PLATELET VOLUME 8.3 FL (6.5-11.5); MONOCYTE# 0.5 X10e3 (0-1.0); MONOCYTE% 3.8 % (3.0-12.0); NEUTROPHIL# 12.8 X10e3 (1.5-7.1); NEUTROPHIL% 88.3 % (40-75); PLATELET COUNT 230 X10e3 (140-420); RED BLOOD COUNT 4.11 X10e (3.90-5.30); RED CELL DISTRIBUTION WIDTH 13.4 % (11.0-15.5); WHITE BLOOD COUNT 14.5 X10e3 (4.0-10.5)
[2016-11-28 09:44] LABS: BLOOD UREA NITROGEN 37 mg/dL (9-23); BUN/CREATININE RATIO 24.66; CALCIUM SERUM 8.6 mg/dL (8.4-10.2); CARBON DIOXIDE 26 mmol/L (22-31); CHLORIDE 107 mmol/L (100-111); CREATININE SERUM 1.5 mg/dL (0.6-1.4); GLOM FILT RATE Estimated 33.5 mL/min (>60); GLUCOSE FASTING 156 mg/dL (70-110); POTASSIUM 3.8 mmol/L (3.5-5.1); SODIUM 141 mmol/L (135-145)
[2016-11-28 10:31] LABS: PROCALCITONIN <0.05 NG/ML
[2016-11-28 22:34] LABS: URINE APPEARANCE CLEAR; URINE COLOR YELLOW
[2016-11-28 22:35] LABS: URBCS1 AUWI NEG /[HPF] (0-2); URINE BILIRUBIN NEG (NEG); URINE BLOOD NEG (NEG); URINE GLUCOSE NORM (NEG); URINE KETONE NEG (NEG); URINE LEUKOCYTE ESTERASE 1+ (NEG); URINE NITRATE NEG (NEG); URINE PROTEIN NEG (NEG); URINE SOURCE VOID; URINE UROBILINOGEN NORM (NEG)
[2016-11-28 22:42] LABS: CULTURE INDICATED? NO; UWBCS1 AUWI 0-2 (0-5)
[2016-11-29 06:46] LABS: BUN/CREATININE RATIO 24.11; CALCIUM SERUM 8.3 mg/dL (8.4-10.2); CREATININE SERUM 1.7 mg/dL (0.6-1.4); GLOM FILT RATE Estimated 28.8 mL/min (>60); POTASSIUM 3.5 mmol/L (3.5-5.1)
[2016-11-30 05:12] LABS: HEMATOCRIT 37.8 % (35.0-45.0); HEMOGLOBIN 12.8 gm/dL (12.0-16.0); MEAN CELL VOLUME 93.9 FL (83-96); MEAN CORPUSCULAR HEMOGLOBIN 31.8 PG (28-34); MEAN CORPUSCULAR HGB CONC 33.9 g/dL (30-36); MEAN PLATELET VOLUME 8.5 FL (6.5-11.5); RED BLOOD COUNT 4.03 X10e (3.90-5.30); RED CELL DISTRIBUTION WIDTH 13.2 % (11.0-15.5); WHITE BLOOD COUNT 12.4 X10e3 (4.0-10.5)
[2016-11-30 08:44] LABS: BUN/CREATININE RATIO 25.88; CALCIUM SERUM 8.6 mg/dL (8.4-10.2); CREATININE SERUM 1.7 mg/dL (0.6-1.4); GLOM FILT RATE Estimated 28.8 mL/min (>60); POTASSIUM 3.5 mmol/L (3.5-5.1)
[2016-12-01 08:38] LABS: CALCIUM SERUM 8.3 mg/dL (8.4-10.2); CREATININE SERUM 1.4 mg/dL (0.6-1.4); GLOM FILT RATE Estimated 36.4 mL/min (>60); POTASSIUM 3.9 mmol/L (3.5-5.1)
[2016-12-02 17:23] LABS: UPE RAND ALPHA1 GLOB 0 % (()); UPE RAND PROT/CREAT 91 (21-161); UPE RANDOM ALB (PNL) 100 % (()); UPE RANDOM ALPHA 2 GLOB 0 % (()); UPE RANDOM BETA GLOB 0 % (()); UPE RANDOM CREATININE 164.2 mg/dL (20-320); UPE RANDOM GAMMA GLOB 0 % (()); UPE RANDOM TOTAL PROTEIN (PNL) 15 mg/dL (5-24)
== END 2016-12-01 12:14 | DRG 190 ==
LOC: SED 20:42 → C3A PCU 11-25 00:10 → SEDOF 11-25 00:10 → C3A PCU 11-25 04:23
PROVIDERS: Hospitalist; Internal Medicine Nephrology; Physician Assistant Medical
PROC: B24BZZZ Ultrasonography of Heart with Aorta (ICD-10-PCS; principal; 2016-11-29)
DX: J44.1 Chronic obstructive pulmonary disease with (acute) exacerbation (principal); J96.01 Acute respiratory failure with hypoxia; N17.9 Acute kidney failure, unspecified; N39.0 Urinary tract infection, site not specified; J44.0 Chronic obstructive pulmonary disease with (acute) lower respiratory infection; J20.9 Acute bronchitis, unspecified; I12.9 Hypertensive chronic kidney disease with stage 1 through stage 4 chronic kidney disease, or unspecified chronic kidney disease; N18.3 Chronic kidney disease, stage 3 (moderate); E66.01 Morbid (severe) obesity due to excess calories; Z68.37 Body mass index [BMI] 37.0-37.9, adult; G47.33 Obstructive sleep apnea (adult) (pediatric); E87.6 Hypokalemia; I10 Essential (primary) hypertension; E78.5 Hyperlipidemia, unspecified; F32.9 Major depressive disorder, single episode, unspecified; F41.9 Anxiety disorder, unspecified; Z77.22 Contact with and (suspected) exposure to environmental tobacco smoke (acute) (chronic); R80.9 Proteinuria, unspecified; Z79.82 Long term (current) use of aspirin
CPT/HCPCS: 71010; 76770; 80048; 80053; 81003; 82308; 82553; 82570; 83880; 83883; 84156; 84166; 84300; 84484; 85025; 85027; 85610; 85730; 86334; 86335; 87899; 93005; 93306; 93970; 94640; 94760; 96374; 97116; 97162; 97166; 97530; 97535; 99285; C9113; G8978-GP; G8979-GP; G8987-GO; G8988-GO; J1650; J2920; J2930